=== PATIENT | female | born 1995 | race Caucasian/White ===

== ENCOUNTER 2019-11-26 15:42 | Emergency (ER) | payer SELFPAY ==
[2019-11-26 15:44] VITALS: BP 131/71; PULSE 98; RESP 18; TEMP 37.2; O2SAT 100; BMI 21.5
--- NOTE | 2019-11-26 15:57 | W.ED.PREGNAN ---
HPI - General: Chief complaint: OB/Uterine Contractions Stated complaint: possible Time Seen by Provider: 11/26/19 15:48 History of Present Illness: HPI Narrative: Patient states she is 8 days late on her period. Had some cramping today and some bloody discharge is kind of dark. Says she is done 3 test over the last 8 days and are positive in the morning but negative and evening. Denies any fever chills pain with intercourse burning with urination or other related problems MD Complaint: vaginal bleeding Onset (ago): hour(s) Pain Consistency: colicky Location: pelvis Severity: mild Quality: Cramping Vaginal discharge: none Vaginal bleeding: light Hx Last Menstrual Period: Last month Patient : No (Unsure) Associated symptoms: Reports no associated symptoms; Deny abdominal pain, headache(s), nausea or vomiting Review of Systems Const: Denies: fever(s), chills or body aches Eyes: Denies: change in vision or blurry vision ENMT: Denies: throat pain or nasal congestion Card: Denies: chest pain or dyspnea on exertion Resp: Denies: dyspnea, productive cough or non-productive cough GI: Denies: abdominal pain, nausea or vomiting : Reports: other (Vaginal bleed and cramping) Musc: Denies: extremity pain Skin/Breast: Denies: rash Neuro: Denies: headache(s) Psych: Denies: anxiety or depression Colby/Lymph: Denies: easy bruising PFSH ED PFSH: Social History Smoking and tobacco status: current every day smoker Physical Exam Const: COMMON NORMALS: no acute distress, average body habitus and patient oriented x3 HENMT: COMMON NORMALS: normocephalic HEAD & SCALP: normal to inspection and normocephalic FACE & SINUS: normal facial exam Eye: COMMON NORMALS: conjunctivae normal GENERAL EYE: appearance normal, both eyes and all related structures CONJUNCTIVA: Yes conjunctivae normal Neck/C-Spine: COMMON NORMALS: no JVD Chest: COMMONS NORMALS: normal inspection of the chest Resp: COMMON NORMALS: normal respiratory effort and clear to auscultation bilaterally AUSCULTATION: clear to auscultation bilaterally Cardio: COMMON NORMALS: no JVD, regular rate and regular rhythm RATE: regular rate RHYTHM: regular rhythm GI: COMMON NORMALS: Normal to inspection, nondistended, normoactive bowel sounds present Extremity: COMMON NORMALS: normal to inspection and full ROM Neuro: COMMON NORMALS: patient oriented x3 Course Vital Signs: Vital signs: Vital Signs Temperature 99.0 F 11/26/19 15:44 Pulse Rate 98 11/26/19 15:44 Respiratory Rate 18 11/26/19 15:44 Blood Pressure 131/71 11/26/19 15:44 Pulse Oximetry 100 11/26/19 15:44 Coding Level of Care Code ED Compliance Review Officer for Pippa Cortés
[2019-11-26 16:15] LABS: Basophils # 0.1 10^3/uL (0.0-0.1); Basophils % 0.8 %; Eosinophils # 0.2 10^3/uL (0.0-0.8); Eosinophils % 2.4 %; Hematocrit 41.2 % (37.0-47.0); Hemoglobin 13.3 g/dL (11.5-15.3); Lymphocytes # 2.2 10^3/uL (0.8-4.8); Lymphocytes % 29.7 %; Mean Corpuscular HGB Conc 32.3 g/dL (30.0-36.0); Mean Corpuscular Hemoglobin 29.8 pg (28.0-34.0); Mean Corpuscular Volume 92.4 fL (81-99); Mean Platelet Volume 10.6 fL (7.4-10.4); Monocytes # 0.5 10^3/uL (0.2-0.9); Monocytes % 7.3 %; Neutrophils # 4.4 10^3/uL (1.8-7.7); Neutrophils % 59.5 %; Nucleated Red Blood Cells % 0 %; Platelet Count 245 10^3/cmm (130-400); Red Blood Count 4.46 10^6/uL (4.1-5.3); Red Cell Distribution Width 12.4 % (12.1-15.1); White Blood Count 7.4 10^3/uL (4.0-10.0)
[2019-11-26 16:15] LABS: Add Urine Microscopic? NO
[2019-11-26 16:35] LABS: Bilirubin Urine Neg (NEGATIVE); Blood Urine Neg (Negative); Glucose Urine UA Norm (Normal); Ketones Urine Negative (Negative); Leukocyte Esterase Urine Negative (Negative); Nitrate Urine Negative (Negative); Protein Urine Neg (Negative); Specific Gravity, Urine 1.005 (1.005-1.030); Urine Appearance Clear (CLEAR); Urine Color Straw (Yellow); Urobilinogen Urine Norm (Negative); pH Urine 7 (5-7)
[2019-11-26 16:47] VITALS: BP 112/71; PULSE 68; RESP 17; O2SAT 98
== END 2019-11-26 16:49 | disposition home or self-care (01) ==
PROVIDERS: Emergency Provider Nurse Practitioner Family; PCP Nurse Practitioner
DX: R10.9 Unspecified abdominal pain (principal); N93.9 Abnormal uterine and vaginal bleeding, unspecified; F17.210 Nicotine dependence, cigarettes, uncomplicated
CPT/HCPCS: 12345; 36415; 81003; 84702; 85025; 86900; 99282

== ENCOUNTER → 2020-11-19 15:39 | Outpatient (BNVA) | payer SELFPAY | PROVIDERS: PCP Nurse Practitioner; Visit Provider Nurse Practitioner Family | DX: Z30.09 Encounter for other general counseling and advice on contraception (principal); F17.200 Nicotine dependence, unspecified, uncomplicated; Z78.9 Other specified health status | CPT/HCPCS: 81025 ==

== ENCOUNTER → 2021-01-24 11:00 | Outpatient (BNVA) | payer OTHER, SELFPAY | PROVIDERS: PCP Nurse Practitioner; Visit Provider Nurse Practitioner Family | DX: Z20.822 Contact with and (suspected) exposure to COVID-19 (principal) | CPT/HCPCS: 87635 ==

== ENCOUNTER 2021-01-27 11:37 | Emergency (ER) | payer MEDICAID, SELFPAY ==
[2021-01-27 11:38] VITALS: BP 105/65; PULSE 91; RESP 16; TEMP 36.4; O2SAT 98
[2021-01-27 11:49] VITALS: O2SAT 98
--- NOTE | 2021-01-27 11:57 | ED_ITS ---
HPI - General Adult General: Chief complaint: COVID symptoms Stated complaint: COVID, DIFF BREATHING Time Seen by Provider: 01/27/21 11:39 History of Present Illness: HPI narrative: CC: Shortness of breath, chest pain fever and generalized weakness HPI: This is a [25] yo patient w/ no significant PMH presenting to the ED with malaise, generalized weakness, cough sputum production, and L sided chest pain after she was diagnosed with covid on 01/23/2021. Since onset of symptoms, has had some shortness of breath and decreased PO intake. NO recent travel. Patient went see her PCP on 01/24 and was diagnosed positive on COVID PCR. Denies N/V, diaphoresis, GI or other complaints. Denies any pleuritic chest pain, recent surgery/immobilization/travel, or hematemesis or hx of VTE in the past. Onset: 4 days ago Duration: ongoing for the last 4 days Location: home Severity: moderate Review of Systems Narrative: Constitutional: +subjective fever, +generalized weakness HEENT: No vision changes CV: +chest pain, no palpitations PULM: +cough, +dyspnea. GI: No abdominal pain, no N/V/D. : No dysuria MSKEL: No muscle pain SKIN: No new rashes, no lesions. NEURO: No headache, no focal weakness. HEME: No visible bruises PSYCH: Normal mood PFSH ED PFSH: Family History Denies family history of Diabetes Bleeding disorder Family history of premature coronary artery disease Cancer Social History Smoking and tobacco status: current every day smoker cigarettes Packs smoked per day: 0.5 Years cigarettes smoked: 5 Second hand smoke exposure: No Alcohol intake: never Caregiver/support person: Yes Lives independently: Yes Marital status: Single service: No Current occupational status: employed Current occupation: [employer] History of recent travel: No Current gender identity: Female Physical Exam Narrative: EXAM NARRATIVE: Head: Atraumatic Eyes: PERRL, conjunctiva without injection ENT: Mucous membrane moist NECK: Supple without lymphadenopathy LUNGS: Lungs clear to ascutation CV: RRR ABDOMEN: Soft, nontender EXTREMITY: Normal ROM SKIN: No rash or erythema NEURO: Awake and alert. No focal motor deficits. PSYCH: Normal mood and affect. Course Vital Signs: Vital signs: Vital Signs Temperature 97.5 F L 01/27/21 11:38 Pulse Rate 75 01/27/21 14:11 Respiratory Rate 16 01/27/21 14:11 Blood Pressure 109/54 01/27/21 14:11 Pulse Oximetry 97 01/27/21 14:11 MDM - General Adult MDM Narrative: Medical decision making narrative: [25]yo patient presenting to the ED with shortness of breath, cough, chest pain and malaise after diagnosing with COVID. Workup today includes XR chest and EKG. Defer lab work at this time given that the patient is well appearing with stable vital signs and without recent hospitalization or care facility stay. Given History, Exam, and Workup presentation most consistent with pneumonia.Presentation not consistent with PE, COPD exacerbation, Pneumothorax, TB, Atypical ACS, Esophageal Rupture, Toxic Exposure, Foreign Body Airway Obstruction. Workup: CXR, EKG Intervention: Zofran, PO challenge EKG showing regular sinus rhythm at HT of [69]. Normal axis. No ST elevations/depressions to suggest coronary occlusion. Normal OH, QRS, QT intervals. [12:45] On reassessment Findings consistent suspected COVID symptoms. Afebrile currently. Patient continues to be in no respiratory distress with sats sats > 95% without requirements of oxygen in the emergency department. At this time jhon is not a candidate for BAM since patient does NOT meet any of the following criteria for EUA of MCA. I have discussed the workup today with patient who agrees to go home with serial observation. I have give patient strict return precautions for any worsening symptoms including worsening dyspnea, exertional dyspnea, cough, chest pain, dehydration, or any other concerns that patient may have. Disposition: Discharge. Patient is given strict follow up with PCP in 24-48 hrs for reassessment. Patient agrees with everything discussed today. Imaging Data^: Other Imaging: Radiologist's impression: [id number] [place], [place] [address]BBdf ReportSigned Patient: María Stanford #: [id number]: 1995Acct#:[id number]/Sex: 25 / FADM Date: 01/27/21Loc: ERRoom/Bed:Attending Dr: Ordering Provider/Ordering MD: Jam Larsen MD Date of Service: 01/27/21 Procedure(s): XR chest 1V portable [id number] Accession Number(s): [id number] Report Number: [id number] PROCEDURE INFORMATION: Exam: XR Chest Exam date and time: 01/27/2021 12:03 PM Age: 25 years old Clinical indication: Cough and shortness of breath; Patient HX: SOB, chest pressue, coughing x 2 weeks; Additional info: Rule out covid pna TECHNIQUE: Imaging protocol: XR of the chest. Views: 1 view. COMPARISON: CR Chest 1 [place] [id number] 10/23/2018 4:21 PM FINDINGS: Lungs: Unremarkable. No consolidation. Pleural spaces: Unremarkable. No pleural effusion. No pneumothorax. Heart/Mediastinum: Unremarkable. No cardiomegaly. Bones/joints: Unremarkable. XR/XR chest 1V portable [id number] IMPRESSION: No acute findings. Dictated By:Nga Marion By:Nga Marion Date/Time:01/27/21 1237DD/ 1235 Discharge Plan Discharge Patient Disposition: Home Clinical Impression: Cough, Chest pain, COVID-19 Condition: Stable Prescriptions: New Zofran 4 mg tablet 4 mg PO Q8H PRN (Reason: nausea and vomiting) 4 Days Qty: 12 RF: 0 No Action dexamethasone 6 mg tablet 6 mg PO DAILY Qty: 7 RF: 0 ondansetron HCl [Zofran] 4 mg tablet 4 mg PO Q6H PRN (Reason: nausea and vomiting) Qty: 20 RF: 0 albuterol sulfate [ProAir HFA] 90 mcg/actuation HFA aerosol inhaler 2 puff inhalation Q6H PRN (Reason: shortness of breath or wheezing) Qty: 8.5 RF: 0 Depo-Provera 150 mg/mL syringe See Rx Instructions .ROUTE .COMPLEX RF: 0 Discharge Orders: Discharge ED (Routine); Ordered 01/27/21 Ordered By: Jam Larsen Referrals: Janee Smith, PRODUCER ARBORIST MANAGER-C [Primary Care Provider] - Discharge Diet: Advance as tolerated Discharge Activity: Resume usual activity Patient Instructions: Severe Acute Respiratory Syndrome (SARS) (ED) Activity Restrictions/Additional Instructions: Follow-up with your primary care provider for evaluation of your symptoms. Come back to the emergency room if you have any worsening shortness of breath. Take your nausea medication as instructed if you have any symptoms. Coding Level of Care Code ED Vending Route Driver for Pippa Cortés
--- NOTE | 2021-01-27 12:03 | XRR_ITS ---
PROCEDURE INFORMATION: Exam: XR Chest Exam date and time: 01/27/2021 12:03 PM Age: 25 years old Clinical indication: Cough and shortness of breath; Patient HX: SOB, chest pressue, coughing x 2 weeks; Additional info: Rule out covid pna TECHNIQUE: Imaging protocol: XR of the chest. Views: 1 view. COMPARISON: CR Chest 1 [place] [id number] 10/23/2018 4:21 PM FINDINGS: Lungs: Unremarkable. No consolidation. Pleural spaces: Unremarkable. No pleural effusion. No pneumothorax. Heart/Mediastinum: Unremarkable. No cardiomegaly. Bones/joints: Unremarkable. XR/XR chest 1V portable [id number] IMPRESSION: No acute findings.
--- NOTE | 2021-01-27 12:03 | ECG_ITS ---
[facility] Test Date: 2021-01-27 Pat Name: María Stanford Department: Room: Gender: Female Supervisor Tunnel Heading: : 1995 Requested By: Jam Larsen Order Number: [id number] March MD: Lux Mcnamara M.D. Measurements Intervals [place] Rate: 69 P: 60 OR: 133 QRS: 84 QRSD: 93 T: 59 QT: 375 QTc: 404 Interpretive Statements SINUS RHYTHM POSSIBLE LEFT ATRIAL ENLARGEMENT [-0.1mV P-WAVE IN V1/V2] POSSIBLE RIGHT VENTRICULAR CONDUCTION DELAY [RSR (QR) IN V1/V2] MODERATE ST DEPRESSION [0.05+ mV ST DEPRESSION] Compared to ECG 04/19/2019 12:33:07 ST (T wave) deviation now present Sinus arrhythmia no longer present Electronically Signed On 01-27-2021 19:30:56 CDT by Lux Mcnamara M.D. [id number]
[2021-01-27] MEDS: ondansetron 4 MG Tablet PO (12:50)
[2021-01-27 14:11] VITALS: BP 109/54; PULSE 75; RESP 16; O2SAT 97
== END 2021-01-27 14:12 | disposition home or self-care (01) ==
PROVIDERS: Emergency Provider Emergency Medicine; PCP Nurse Practitioner
DX: U07.1 COVID-19 (principal); F17.210 Nicotine dependence, cigarettes, uncomplicated
CPT/HCPCS: 71045; 93005; 99283; Q0162

== ENCOUNTER → 2021-07-10 15:02 | Outpatient (BNVA) | payer MEDICAID, SELFPAY | PROVIDERS: PCP Nurse Practitioner; Visit Provider Nurse Practitioner Family | DX: N93.9 Abnormal uterine and vaginal bleeding, unspecified (principal) | CPT/HCPCS: 80053; 81025; 84702; 85025 ==

== ENCOUNTER 2021-08-26 09:52 | Emergency (ER) | payer MEDICAID, SELFPAY ==
[2021-08-26 10:48] VITALS: BP 115/69; PULSE 82; RESP 14; TEMP 36.7; O2SAT 100; BMI 21.9
--- NOTE | 2021-08-26 11:08 | ED_ITS ---
HPI - General Adult General: Chief complaint: General Medical Stated complaint: allergic rxn Time Seen by Provider: 08/26/21 10:05 History of Present Illness: Patient is a 26-year-old female comes to the ED with a rash. Patient says that 3 weeks ago was when the rash started. Patient had just her hair right before the rash started when she used a new hair dye. She then started developing a pruritic rash on her ears bilateral arms and legs. Left earlobe started getting more red swollen and tender. Within the last 24 hours patient's left ear will be started having some puslike drainage. Associated symptoms: Reports rash (Pruritic rash on ears, bilateral arms and legs.); Deny chest pain, dyspnea, headache(s), nausea, palpitations or vomiting Review of Systems Const: Denies: fever(s), chills or fatigue Eyes: Denies: change in vision or eye discomfort ENMT: Denies: throat pain, odynophagia, nasal discharge or nasal congestion Card: Denies: chest pain, palpitations, edema, swelling of feet/ankles, dyspnea on exertion or orthopnea Resp: Denies: dyspnea, productive cough or non-productive cough GI: Denies: abdominal pain, nausea, vomiting, diarrhea, constipation or hematochezia : Denies: flank pain, dysuria or hematuria Musc: Denies: neck pain, back pain or extremity swelling Skin/Breast: Reports: rash (Pruritic rash on ears, bilateral arms and legs.) and new lesions (Left earlobe-erythema, warmth tenderness and drainage) Neuro: Denies: headache(s), numbness in extremities or weakness in extremities PFSH ED PFSH: Family History Denies family history of Diabetes Bleeding disorder Family history of premature coronary artery disease Cancer Social History Smoking and tobacco status: former smoker (quit November,) Quit status (tobacco): has quit using tobacco Year quit tobacco: 2020 Former quit date comment: smoked 0.5 PPD x 5 yrs Second hand smoke exposure: No Alcohol intake: never Caregiver/support person: Yes Lives independently: Yes Household members: children Marital status: Single service: No Current occupational status: employed Current occupation: [employer] History of recent travel: No Current gender identity: Female Special mary needs: No Physical Exam Const: COMMON NORMALS: no acute distress, patient oriented x3 and alert GENERAL APPEARANCE: cooperative and comfortable HENMT: COMMON NORMALS: normocephalic HEAD & SCALP: normocephalic MOUTH: Normal oral and palatal mucosa present THROAT: posterior oropharynx normal and uvula midline Neck/C-Spine: COMMON NORMALS: supple GENERAL: Yes normal visual inspection Resp: COMMON NORMALS: normal respiratory effort, No retractions, No use of accessory muscles and clear to auscultation bilaterally AUSCULTATION: clear to auscultation bilaterally Cardio: COMMON NORMALS: regular rate, regular rhythm, S1 normal heart sound present, S2 normal heart sound present, No gallops present (Cardio), No clicks present (Cardio), No murmurs present (Cardio) and Peripheral pulses 2+ throughout RATE: regular rate RHYTHM: regular rhythm HEART SOUNDS: S1 normal heart sound present and S2 normal heart sound present PERIPHERAL PULSES: Peripheral pulses 2+ throughout GI: COMMON NORMALS: Normal to inspection, nondistended, normoactive bowel sounds present, Soft to palpation, non-tender and no masses PALPATION: Yes Soft to palpation : COMMON NORMALS: Yes no CVA tenderness BLADDER/KIDNEY EXAM: Yes no CVA tenderness Back/Pelvis: COMMON NORMALS: no CVA tenderness Extremity: NARRATIVE EXTREMITY EXAM: Pruritic hives-like rash from extremities GENERAL: Yes normal exam except as noted Neuro: COMMON NORMALS: patient oriented x3 and moves all extremities SENSORIUM/ORIENTATION: Yes alert Skin: NARRATIVE SKIN EXAM: Patient has pruritic hives-like rash on bilateral arms and legs. She also has a dry pruritic rash around her ears bilaterally. Left earlobe?erythema, warmth and tenderness noted. Some purulent drainage noted as well. Course Vital Signs: Vital signs: Vital Signs Temperature 98.0 F 08/26/21 10:48 Pulse Rate 82 08/26/21 10:48 Respiratory Rate 14 08/26/21 10:48 Blood Pressure 115/69 08/26/21 10:48 Pulse Oximetry 100 08/26/21 10:48 [facility] - General Adult Medical Decision Making Patient is a 26-year-old female that has a pruritic rash on neck, scalp and arms and legs bilaterally. Symptoms started after she dyed her hair with new products. Vitals are stable. Patient appears nontoxic in no acute distress. She does have hives-like rash on her upper and lower extremities bilaterally. She also has a dry pruritic rash around her ears and some developing cellulitis on the left earlobe with some puslike drainage. Patient was put on an antibiotic and a steroid to treat the allergic reaction and the cellulitis of the left earlobe. I also sent her with some steroid cream and mupirocin ointment as well. Follow-up with PCP in the next 7 to 10 days for reevaluation. Return ED precautions given. Patient understood and agreed with plan. Discharge Plan Discharge Patient Disposition: Home Clinical Impression: Allergic reaction, Cellulitis of left earlobe Condition: Stable Prescriptions: New mupirocin 2 % ointment 1 applic topical BID 7 Days Qty: 22 0RF prednisone 20 mg tablet 20 mg PO BID 5 Days Qty: 10 0RF triamcinolone acetonide 0.1 % cream 1 applic topical BID PRN (Reason: rash) Qty: 80 0RF clindamycin HCl 150 mg capsule 300 mg PO Q6H 7 Days Qty: 56 0RF Discharge Orders: Discharge ED (Routine); Ordered 08/26/21 Ordered By: Lucio Cerna Referrals: Sultana Arroyo FNP [Primary Care Provider] - Discharge Diet: Regular Discharge Activity: Resume usual activity Patient Instructions: Allergic Reaction, Cellulitis (ED) Activity Restrictions/Additional Instructions: Follow-up with medical provider as directed in the next 5-7 days for reevaluation. Take medications as prescribed. Mupirocin is the antibiotic ointment that I want you to apply on your left earlobe twice a day to help with infection. to the ER or your medical provider if condition worsens. Please read and understand discharge instructions. Thank you for choosing [facility] for your healthcare needs today. Please realize this is an emergency room and that we are providing you with a medical screening exam and this may not be complete and all inclusive of all the testing and or work up that you may need to determine your ailment or severity of your illness. It is very important that you follow up as instructed or that you return to the Emergency Department should you have concerns or if your condition changes or worsens in any way. Coding Level of Care Code ED Gravedigger for Pippa Cortés Exam Comprehensive
== END 2021-08-26 12:20 | disposition home or self-care (01) ==
PROVIDERS: Emergency Provider Physician Assistant; PCP Nurse Practitioner Family
DX: T78.40XA Allergy, unspecified, initial encounter (principal); H60.12 Cellulitis of left external ear
CPT/HCPCS: 96372; 99283; J2930

== ENCOUNTER 2022-10-23 13:30 | Emergency (ER) | payer MEDICAID, SELFPAY ==
[2022-10-23 13:44] VITALS: BP 100/63; PULSE 98; RESP 16; TEMP 36.6; O2SAT 97; BMI 21.0
[2022-10-23 14:40] LABS: Basophils # 0.1 10^3/uL (0.0-0.1); Basophils % 0.8 %; Eosinophils # 0.1 10^3/uL (0.0-0.8); Eosinophils % 1.4 %; Hematocrit 36.7 % (37.0-47.0); Hemoglobin 12.4 g/dL (11.5-15.3); Lymphocytes # 1.6 10^3/uL (0.8-4.8); Mean Corpuscular HGB Conc 33.8 g/dL (30.0-36.0); Mean Corpuscular Hemoglobin 30.3 pg (28.0-34.0); Mean Corpuscular Volume 89.7 fl (81-99); Mean Platelet Volume 10.2 fL (7.4-10.4); Monocytes # 0.5 10^3/uL (0.2-0.9); Monocytes % 6.5 %; Neutrophils # 4.83 10^3/uL (1.8-7.7); Neutrophils % 68.2 %; Nucleated Red Blood Cells % 0 %; Platelet Count 228 10^3/cmm (130-400); Red Blood Count 4.09 10^6/uL (4.1-5.3); Red Cell Distribution Width 12.6 % (12.1-15.1); White Blood Count 7.1 10^3/uL (4.0-10.0)
[2022-10-23 14:46] VITALS: BP 95/62; PULSE 86; RESP 16; TEMP 36.9; O2SAT 98
[2022-10-23 15:07] LABS: Alanine Aminotransferase 8 U/L (0-33); Albumin Level 4.1 g/dL (3.5-5.2); Alkaline Phosphatase 44 U/L (35-105); Anion Gap 15.3 (5-19); Aspartate Amino Transferase 10 U/L (0-32); Blood Urea Nitrogen 6 mg/dL (6-20); Calcium 8.5 mg/dL (8.5-10.5); Carbon Dioxide 22 mmol/L (22-29); Chloride 103 mmol/L (98-107); Globulin 2.3 g/dL (1.3-4.6); Glomerular Filtration Rate 192.9 mL/min (90-130); Glucose 76 mg/dL (65-115); Osmolality Calculated 280 mOsm/kg (285-295); Potassium 3.3 mmol/L (3.5-5.1); Sodium 137 mmol/L (136-145); Total Bilirubin 0.2 mg/dL (0.15-1.2); Total Protein 6.4 g/dL (6.6-8.7)
[2022-10-23 15:30] VITALS: BP 93/61; PULSE 83; RESP 15; TEMP 36.8; O2SAT 99
== END 2022-10-23 16:25 | disposition left against medical advice (07) ==
PROVIDERS: Physician Assistant; Emergency Provider Family Medicine; PCP Nurse Practitioner Family
DX: Z53.21 Procedure and treatment not carried out due to patient leaving prior to being seen by health care provider (principal)
CPT/HCPCS: 36415; 80053; 84702; 85025

== ENCOUNTER → 2023-02-22 09:43 | Day surgery (SDC) | payer MEDICAID, SELFPAY ==
[2023-02-22 10:11] VITALS: BP 120/59; PULSE 77; RESP 18; TEMP 36.4; O2SAT 100
[2023-02-22 11:02] VITALS: BP 120/59; PULSE 77; RESP 18; TEMP 36.4; O2SAT 100
== END ==
LOC: GILAB 09:45
PROVIDERS: PCP Nurse Practitioner Family; Visit Provider Family Medicine
DX: O26.899 Other specified pregnancy related conditions, unspecified trimester (principal); Z3A.00 Weeks of gestation of pregnancy not specified; Z67.91 Unspecified blood type, Rh negative
CPT/HCPCS: 36415; 86850; 86900; 90384; 96372

== ENCOUNTER 2023-04-21 15:37 | Outpatient (CLI) | payer MEDICAID, SELFPAY ==
[2023-04-21 15:40] VITALS: BMI 25.0
[2023-04-21 15:53] VITALS: BP 115/62; PULSE 98
[2023-04-21 16:08] VITALS: BP 110/57; PULSE 75
[2023-04-21 16:12] VITALS: RESP 16
[2023-04-21 16:22] LABS: Bilirubin Urine Neg (Negative); Blood Urine Neg (Negative); Glucose Urine UA Norm (Normal); Ketones Urine Negative (Negative); Leukocyte Esterase Urine Negative (Negative); Nitrate Urine Positive (Negative); Protein Urine Neg (Negative); Urine Appearance Clear (CLEAR); Urine Color Yellow (Yellow); Urobilinogen Urine Norm (Negative); pH Urine 7 (5-7)
[2023-04-21 16:23] VITALS: BP 109/63; PULSE 81
[2023-04-21 16:41] LABS: Add Urine Culture? No; Bacteria Urine TRACE /hpf; WBC Urine 0-4 /hpf (0-5)
== END 2023-04-21 16:40 | disposition home or self-care (01) ==
LOC: OPOB 15:41 → OBGYN 15:42
PROVIDERS: PCP Nurse Practitioner Family; Visit Provider Family Medicine
DX: O26.899 Other specified pregnancy related conditions, unspecified trimester (principal); Z3A.00 Weeks of gestation of pregnancy not specified; R10.2 Pelvic and perineal pain
CPT/HCPCS: 59025; 81001; 99211

== ENCOUNTER 2023-04-23 20:47 | Inpatient (IN) | payer MEDICAID, SELFPAY ==
[2023-04-23] VITALS (46 sets, daily range): BP systolic 66–125; BP diastolic 31–72; PULSE 62–116; RESP 17; TEMP 36; O2SAT 92–100; BMI 25.2
[2023-04-23] MEDS: lactated ringers 1,000 ML 999 ML IV ×4 (19:31→23:43)
[2023-04-23] MEDS: ampicillin 2,000 MG in sodium chloride 0.9% (plus) 50 ML 100 MG IV (21:29)
[2023-04-23 21:31] LABS: Basophils % 0.3 %; Eosinophils % 0.3 %; Hematocrit 35.3 % (36-47); Lymphocytes # 1.3 10^3/uL (0.8-4.8); Mean Corpuscular Hemoglobin 27.9 pg (27-33); Mean Corpuscular Volume 87.2 fl (85-98); Mean Platelet Volume 11.5 fL (7.4-10.4); Monocytes # 0.8 10^3/uL (0.2-0.9); Neutrophils # 9.38 10^3/uL (1.8-7.7); Neutrophils % 80.9 %; Nucleated Red Blood Cells % 0 %; Platelet Count 202 10^3/cmm (157-399); Red Blood Count 4.05 10^6/uL (3.85-5.65); Red Cell Distribution Width 12.5 % (12.1-15.1); White Blood Count 11.59 10^3/uL (3.29-11.43)
--- NOTE | 2023-04-23 22:00 | P.ANESASSM_ITS ---
Pre-Anesthetic Assessment Height/Weight: Height 1.63 m Weight 66.678 kg Temp Pulse Resp BP Pulse Ox O2 Del Method 96.8 F L 79 17 118/56 92 Room Air 04/23/23 21:01 04/23/23 22:16 04/23/23 17:58 04/23/23 22:15 04/23/23 22:16 04/23/23 17:58 Preop Diagnosis: IUP labor epidural Familial anesthetic complications: none Was Beta Lizette taken within 24 hours: N/A Was Clonidine taken within 24 hours: N/A Social No alcohol and No tobacco Exam alert and oriented x 3 Airway Submandibular: within normal limits Cervical ROM: within normal limits Mallampati: Class II Dentition: full History/ROS No significant complaints Anesthetic Plan ASA status: 2 Anesthesia: Anesthesia Evaluation and Regional (specify below) Medications/Allergies Home Medications Medication Instructions Recorded Confirmed Last Taken Type uaxumake-mya-Ga-FA 1 mg 1 tab PO DAILY 02/22/23 02/22/23 02/22/23 History tablet Allergies Allergy/AdvReac Type Severity Reaction Status Date / Time No Known Allergies Allergy Verified 04/23/23 18:13 Current Medications Generic Name Dose Route Start Last Admin Trade Name Freq PRN Reason Stop Dose Admin Lactated Ringer's 1,000 mls @ 999 mls/hr 04/23/23 20:47 04/23/23 21:15 Lactated Ringers IV 999 mls/hr .Q1H1M PRN Administration See label comments PFSH Anesthesia Surgical History No pertinent past surgical history Family History Denies family history of Diabetes Bleeding disorder Family history of premature coronary artery disease Cancer Social History (Updated 04/23/23 @ 22:11 by Lucio Bernardo MD) Smoking and tobacco/nicotine status: current every day tobacco/nicotine user e- cigarettes E-Cigarette Details: vaporizer device Second hand smoke exposure: No Alcohol intake: never Substance/Drug Use: never Caregiver/support person: Yes Lives independently: Yes Household members: children Marital status: Single service: No Current occupational status: employed Current occupation: [employer] Current gender identity: Female Special mary needs: No Female Reproductive History : 4 Data Anesthesia 04/23/23 19:24 Short CBC 04/23/23 Range/Units 19:24 WBC 11.59 H (3.29-11.43) 10^3/uL Hgb 11.30 (11.27-16.99) g/dL Hct 35.3 L (36-47) % MCV 87.2 (85-98) fl Plt Count 202 (157-399) 10^3/cmm Neut % (Auto) 80.9 % Neut # (Auto) 9.38 H (1.8-7.7) 10^3/uL Cardiac Studies: No Data to Display
--- NOTE | 2023-04-23 22:05 | P.HP_ITS ---
Providers/Chief Complaint Admitting Physician: Lucio Bernardo MD Primary Care Provider: [facility] Wilder Chief Complaint: pressure, contractions, back pain, discharge History of Present Illness María Stanford is a 27 year old @ 37.0 weeks gestation by stated EDC consistent with 21-week ultrasound. The patient's is complicated by vaping, diarrhea, Rh- status. The patient has been seen Dr. Gutierrez for obstetric care. I am covering for him while he is out of town. The patient presented to labor and delivery triage due to contractions that had started to increase around 3 PM on the afternoon of 04/23/2023. Apparently she had been having contractions for the last few days but they began to get stronger and closer together. She also has had diarrhea off and on for the last few weeks. She has not had any fevers or significant abdominal pain. She denies any blood in her stool. In triage the patient was initially 1 cm dilated. After 2 hours she changed to 2 cm dilation. She was duarte every 2 to 3 minutes. Because she was making change on her home, she was kept for spontaneous labor. The patient denies chest pains, cough, fever, nausea, vomiting, dysuria, leakage of fluid, vaginal bleeding other than bloody show. The patient is O- and states that she received her RhoGAM around 28 weeks. Medications/Allergies Home Medications Medication Instructions Recorded Confirmed Last Taken Type oerqwhcj-[id number] 1 mg 1 tab PO DAILY 02/22/23 02/22/23 02/22/23 History tablet Allergies Allergy/AdvReac Type Severity Reaction Status Date / Time No Known Allergies Allergy Verified 04/23/23 18:13 PFSH Acute PFSH: Surgical History No pertinent past surgical history Family History Denies family history of Diabetes Bleeding disorder Family history of premature coronary artery disease Cancer Social History (Updated 04/23/23 @ 22:11 by Lucio Bernardo MD) Smoking and tobacco/nicotine status: current every day tobacco/nicotine user e- cigarettes E-Cigarette Details: vaporizer device Second hand smoke exposure: No Alcohol intake: never Substance/Drug Use: never Caregiver/support person: Yes Lives independently: Yes Household members: children Marital status: Single service: No Current occupational status: employed Current occupation: [employer] Current gender identity: Female Special mary needs: No Female Reproductive History: : 4 Vitals/I&O/Wt Last Vital Signs Temp 96.8 F L 04/23/23 21:01 Pulse 72 04/23/23 21:52 Resp 17 04/23/23 17:58 BP 114/60 04/23/23 21:52 O2 Del Method Room Air 04/23/23 17:58 04/23/23 04/23/23 04/23/23 06:59 14:59 22:59 Intake Total 99.9 / 99.9 Balance 99.9 / 99.9 Weight last 48 hrs Weight 147 lb Physical Exam Narrative: General: Alert and oriented x3 Eyes: Pupils equal round and reactive to light and accommodation Mouth: Mucous membranes moist, pharynx non-erythematous Cardiac: Regular rate and rhythm without murmurs Lungs: Clear to auscultation bilaterally without wheezes, crackles or rhonchi Abdomen: Soft, non-tender, fundus consistent with gestational age Extremities: Trace edema in the bilateral lower extremities Data 04/23/23 19:24 A&P Assessment and plan (1) Supervision of normal intrauterine in multigravida: The patient has come in in active labor. She is duarte every 2 to 4 minutes. She has continued to make change so no further augmentation with Pitocin has been needed. Currently the head is vertex and ballotable. The patient has a history of the infant moving to the breech position right before delivery and delivery of breech. I have discussed this with the nurses and they will be watching for any signs of this. We would plan for a section if this happens again. The patient will receive a laboring epidural. The patient is GBS positive. We will start her on IV ampicillin for GBS prophylaxis. Currently heart tones are in the mid 130s with moderate variability good accelerations with a category 1 tracing. I discussed that the infant does have an increased risk for complications due to their gestational age, however that frequently infants born at 37 weeks also do well and that we will be able to tell once baby delivers. All questions were answered. Proceed with routine management otherwise. (2) Nicotine abuse: (3) Rh negative status during : (4) Diarrhea: The cause of this is not clear. It certainly could be due to a viral illness. Will watch for any signs of complications. Attestations Medical Necessity Statement*: The patient will be here for greater than 2 midnights due to routine intrapartum and management of labor and delivery. Coding Level of Care Code Acute Code for Chg Fwd Diagnoses Supervision of normal intrauterine in multigravida Z34.80 Nicotine abuse Z72.0 Rh negative status during O26.899; Z67.91 Diarrhea R19.7
[2023-04-23] MEDS: ROPivacaine syringe 100 MG/50 ML SYRINGE 10 MG EPIDURAL (22:17)
--- NOTE | 2023-04-23 22:20 | P.ANES_ITS ---
Anesthesia Procedures Procedure/Date: 04/23/23 Epidural: Time Out Performed: Yes Consents Signed: Procedure Consent Consent: from patient, risks and benefits reviewed and patient agrees to proceed Lumbar Level: L3-L4 Epidural position: sitting Epidural procedure: sterile prep of area, 1% lidocaine to numb the area, 18 g needle, negative for p aresthesia passed, test dose given, 1.5% xylocaine 1:200k epi, placed PCEA, no systemic response, sterile dressing applied, L.U.D. no apparent complications and 0.2% Ropiavacaine @ mls/hr (10) Additional Comments: YUNG at 3.5, taped at 12 at skin. NEgative blood/CSF upon apsiration.
[2023-04-23] MEDS: dextrose 5%-lactated ringers 1,000 ML 125 ML IV (22:39)
[2023-04-23 23:21] LABS: Glucose Urine UA Norm (Normal); Ketones Urine 2+ (Negative); Protein Urine Neg (Negative); Specific Gravity, Urine 1.005 (1.005-1.030); Urine Appearance Hazy (CLEAR); Urine Color Yellow (Yellow); pH Urine 7 (5-7)
[2023-04-23 23:22] LABS: Add Urine Culture? No; Bacteria Urine TRACE /hpf; Bilirubin Urine Neg (Negative); Blood Urine Neg (Negative); Leukocyte Esterase Urine Trace (Negative); Nitrate Urine Positive (Negative); RBC Urine 0-4 /hpf (0-2); Squamous Epithelial Cell Urine 0-4 /hpf (0-5); Urobilinogen Urine Neg (Negative); WBC Urine 0-4 /hpf (0-5)
--- NOTE | 2023-04-23 23:56 | PC.NURSE ---
Prenatals not available from clinic at this time. Patient able to access patient portal, but unable to find results of records.
[2023-04-24] VITALS (92 sets, daily range): BP systolic 89–115; BP diastolic 50–77; PULSE 61–106; RESP 14–17; TEMP 34.8–36.7; O2SAT 98–100; BMI 26.0
[2023-04-24] MEDS: ROPivacaine syringe 100 MG/50 ML SYRINGE 10 MG EPIDURAL ×3 (01:35→09:53)
[2023-04-24] MEDS: ampicillin 1,000 MG in sodium chloride 0.9% (plus) 50 ML 100 MG IV ×3 (01:40→09:14)
[2023-04-24] MEDS: dextrose 5%-lactated ringers 1,000 ML 125 ML IV (08:24)
[2023-04-24] MEDS: oxytocin 30 UNIT/500 ML BAG IV (09:13)
--- NOTE | 2023-04-24 11:22 | PM.MISC ---
Miscellaneous Note Purpose of Documentation: Epidural Bolus Patient c/o discomfort 03/09, bolused 100mcg fentanyl and 5mls of 2% lido through epidural.
--- NOTE | 2023-04-24 13:01 | PM.DELIVERY ---
Delivery Note: Date of delivery: April 24, 2023 Pre-delivery diagnoses: 1. Intrauterine at 37.1 weeks gestation 2. Rh- status 3. Diarrhea 4. Positive nitrates in urine 5. Vaping Post-delivery diagnoses: 1. Intrauterine status post spontaneous vaginal delivery at 37.1 weeks gestation 2. Rh- status 3. Diarrhea 4. Positive nitrates in urine 5. Vaping 6. Delivery of infant male weighing 6 pounds 9 ounces with Apgars of 4 and 8 Procedure: Spontaneous vaginal delivery Delivering Physician: Lucio Bernardo MD Pre-Delivery Course: María Stanford is a 27 year old G4 now P4 status post spontaneous vaginal delivery @ 37.1 weeks gestation by stated EDC consistent with 21-week ultrasound.? The patient's is complicated by vaping, diarrhea, Rh- status.? The patient has been seen Dr. Gutierrez for obstetric care.? I am covering for him while he is out of town. The patient presented to labor and delivery triage due to contractions that had started to increase around 3 PM on the afternoon of 04/23/2023.? Apparently she had been having contractions for the last few days but they began to get stronger and closer together.? She also had diarrhea off and on for the last few weeks.? She has not had any fevers or significant abdominal pain.? She denies any blood in her stool. In triage the patient was initially 1 cm dilated.? After 2 hours she changed to 2 cm dilation.? She was duarte every 2 to 3 minutes.? Because she was making change on her home, she was kept for spontaneous labor. The patient made slow change overnight but eventually made progress to 6 cm dilation by the morning of 04/24/2023. AROM was performed at 7:25 AM on 04/24/2023 to augment labor since she stalled out at 6 cm and clear fluid was noted. The patient then continued to make change but it was very slow in nature. For this reason IV Pitocin was added to augment labor. The patient was up to 3 units of Pitocin and then began to make change again. heart tones looked good throughout the labor process until the last few minutes when there was a deceleration right before delivery. The patient received a laboring epidural that initially helped well but then did not help as well towards the end of the delivery process. The patient began having more pain and was 9 and half centimeters. We tried test pushes and initially the cervix did not move out of the way, however with another trial in about 15 minutes the cervix was able to move out of the way and the patient was complete at 12:25 PM on 04/24/2023. Delivery: The patient began pushing with the test pushes at 12:20 PM on 04/24/2023. She pushed well and the delivered in the OA position at 12:36 PM on 04/24/2023. The infant's shoulders were horizontally located at the time of delivery and the right shoulder was rotated anteriorly and delivered initially with downward pressure followed by the left shoulder. The 's hands were by his chest at delivery time. The 's mouth and nose were bulb suctioned by myself. He took an initial breath directly after delivery but had poor respiratory effort. The was placed on the mother's chest where the nurses were waiting to care for him. The infant's cord was clamped by myself after approximately 45 seconds and cut by the 's grandmother. Cord blood was obtained. The cord was then drained of blood and traction was placed on the umbilical cord. The placenta delivered without complication at 12:40 PM on 04/24/2023. The placenta was noted to be intact with a central umbilical cord insertion site. The patient initially had moderate bleeding that declined with uterine massage. The cervix was inspected and no lacerations were noted. The vaginal wall was inspected and there was a small abrasion on the left lateral wall. No suturing was needed. Currently the mother is doing well. Currently the is needing extra support with CPAP. History History Past Pregnancies Del. Date GA/Weeks Outcome Route Wt Inf Gender Labor Lgth Comp. Anesthesia Location 04/24/23 37 live - full term Vaginal 6 lb 9 oz Male 22 hr [facility] A&P Assessment and plan (1) Spontaneous vaginal delivery: (2) Rh negative status during : (3) Diarrhea: Coding Level of Care Code Acute Code for Chg Fwd Diagnoses Spontaneous vaginal delivery O80 Rh negative status during O26.899; Z67.91 Diarrhea R19.7
[2023-04-24] MEDS: acetaminophen 325 mg Tablet 650 MG PO (13:50)
[2023-04-24] MEDS: ibuprofen 800 mg tablet PO ×2 (14:55→20:35)
[2023-04-24] MEDS: benzocaine-menthol 78 gm Canister 1 SPRAY TOPICAL (14:55)
[2023-04-24] MEDS: cefTRIAXone 1,000 MG in sodium chloride 0.9% (plus) 50 ML 100 MG IV (14:56)
--- NOTE | 2023-04-24 15:27 | ANE.PACU2 ---
Inpatient post-anesthesia follow up: Airway intact: Yes Vital signs: Temperature 97.2 F Pulse Rate 84 Respiratory Rate 16 Blood Pressure 112/69 Pulse Oximetry 100 Oxygen Delivery Me thod Room Air Oxygen Flow Rate Fraction of Inspir ed Oxygen Hydration adequate: Yes Nausea and vomiting: No Pain level: 2 Mental status: Baseline Additional Comments: Anes start 04.23.23 2200 Anes end 04.24.24 [id number]
[2023-04-24] MEDS: HYDROcodone-acetaminophen 5-325 mg Tablet PO (16:30)
[2023-04-24] MEDS: docusate sodium 100 mg Capsule PO (20:35)
[2023-04-25] MEDS: acetaminophen 325 mg Tablet 650 MG PO ×2 (00:44→08:06)
[2023-04-25 01:55] LABS: Hematocrit 28.5 % (36-47); Mean Corpuscular HGB Conc 31.9 g/dL (30-55); Mean Corpuscular Hemoglobin 27.9 pg (27-33); Mean Corpuscular Volume 87.4 fl (85-98); Mean Platelet Volume 11.2 fL (7.4-10.4); Platelet Count 186 10^3/cmm (157-399); Red Blood Count 3.26 10^6/uL (3.85-5.65); Red Cell Distribution Width 12.5 % (12.1-15.1); White Blood Count 11.09 10^3/uL (3.29-11.43)
[2023-04-25 04:17] VITALS: BP 103/71; PULSE 75; RESP 15; TEMP 36.4
[2023-04-25 04:23] LABS: Glucose Point of Care 69 mg/dL (70-110)
[2023-04-25 06:35] VITALS: BP 94/58; PULSE 76; RESP 16; TEMP 36.5
--- NOTE | 2023-04-25 07:51 | PM.PN ---
Subjective Subjective: The patient is doing well overall today. She is ambulating, voiding, passing gas and tolerating food by mouth. Her bleeding is decreasing well. Her pain is well-controlled. The patient has no concerns. She did take hydrocodone and did not feel well with it so would like to avoid it. She would like to have a tubal done, however would like to have Dr. Gutierrez do this instead of having it done here prior to discharge. Vitals/I&O/Wt Last Vital Signs Temp 97.7 F 04/25/23 06:35 Pulse 76 04/25/23 06:35 Resp 16 04/25/23 06:35 BP 94/58 04/25/23 06:35 Pulse Ox 99 04/24/23 15:44 O2 Del Method Room Air 04/24/23 15:44 04/24/23 04/25/23 04/25/23 22:59 06:59 14:59 Intake Total 1190.983 / 1605.000 Balance 1190.983 / 1305.000 Weight last 48 hrs Weight 147 lb Weight 147 lb Physical Exam Narrative: General: Alert and oriented x3 Cardiac: Regular rate and rhythm without murmurs Lungs: Clear to auscultation bilaterally without wheezes, crackles or rhonchi Abdomen: Soft, mild tenderness over uterus. The uterus is firm and 2 cm below the umbilicus. Extremities: Trace edema in the bilateral lower extremities Urinary Catheter Management: Mo: Cath Placed During This Visit: yes, but has since been removed by the nurse Reason for Continuing Indwelling Catheter: Decision to DC Catheter Urinary Catheter Date of Insertion: 04/23/23 Urinary Catheter Time of Insertion: 22:45 Date Urinary Catheter Removed: 04/24/23 Time Urinary Catheter Discontinued: 12:25 Data 04/25/23 01:38 A&P Assessment and plan (1) Spontaneous vaginal delivery: The patient is doing well overall at this time. We will continue with routine care. We will start iron today and have her take this as an outpatient due to hemoglobin decreasing down to 9. If the is discharged home today, we will consider discharge home for the mother as well. The patient will follow-up with Dr. Gutierrez at 6 weeks . She may consider an earlier appointment to get scheduled for a tubal ligation as well. The patient did have positive nitrates and a urine culture is pending. She was given Rocephin 1 g IV yesterday. We will watch for results and if positive go ahead and treat. She only had trace leukocyte esterase so this could have been a false positive as well. Attestations Medical Necessity Statement*: The patient will be here for greater than 2 midnights due to routine intrapartum and management of labor and delivery. Coding Level of Care Code Acute Code for Chg Fwd Diagnoses Spontaneous vaginal delivery O80
[2023-04-25] MEDS: ibuprofen 800 mg tablet PO (08:06)
[2023-04-25] MEDS: docusate sodium 100 mg Capsule PO (08:06)
[2023-04-25 08:11] VITALS: BP 106/71; PULSE 81; RESP 16; TEMP 36.6; TEMP 36.7; O2SAT 97
--- NOTE | 2023-04-25 13:55 | PM.DCS ---
Discharge Providers Date of Admission: 04/23/23 20:47 Date of Discharge: April 25, 2023 Attending Provider at Admission: Lucio Bernardo MD Attending Provider at Discharge: Lucio Bernardo MD Primary Care Provider: [facility] Wilder Diagnoses at Discharge Discharge Diagnosis (1) Spontaneous vaginal delivery: Status: Acute Other Information Additional DC diagnoses/information: 1.? Intrauterine status post spontaneous vaginal delivery at 37.1 weeks gestation 2.? Rh- status 3.? Diarrhea 4.? Positive nitrates in urine 5.? Vaping 6.? Delivery of infant male weighing 6 pounds 9 ounces with Apgars of 4 and 8 Reason for Visit Reason for Visit: pressure, contractions, back pain, discharge Brief History: María Stanford is a 27 year old G4 now P4 status post spontaneous vaginal delivery @ 37.1 weeks gestation by stated EDC consistent with 21-week ultrasound.? The patient's is complicated by vaping, diarrhea, Rh- status.? The patient has been seen by Dr. Gutierrez for obstetric care.? I am covering for him while he is out of town. The patient presented to labor and delivery triage due to contractions that had started to increase around 3 PM on the afternoon of 04/23/2023.? Apparently she had been having contractions for the last few days but they began to get stronger and closer together.? She also had diarrhea off and on for the last few weeks.? She has not had any fevers or significant abdominal pain.? She denies any blood in her stool. In triage the patient was initially 1 cm dilated.? After 2 hours she changed to 2 cm dilation.? She was duarte every 2 to 3 minutes.? Because she was making change on her home, she was kept for spontaneous labor. The patient made slow change overnight but eventually made progress to 6 cm dilation by the morning of 04/24/2023.? AROM was performed at 7:25 AM on 04/24/2023 to augment labor since she stalled out at 6 cm and clear fluid was noted.? The patient then continued to make change but it was very slow in nature.? For this reason IV Pitocin was added to augment labor.? The patient was up to 3 units of Pitocin and then began to make change again.? heart tones looked good throughout the labor process until the last few minutes when there was a deceleration right before delivery.? The patient received a laboring epidural that initially helped well but then did not help as well towards the end of the delivery process.? The patient began having more pain and was 9 and half centimeters.? We tried test pushes and initially the cervix did not move out of the way, however with another trial in about 15 minutes the cervix was able to move out of the way and the patient was complete at 12:25 PM on 04/24/2023. Hospital Course Hospital Course The patient began pushing with the test pushes at 12:20 PM on 04/24/2023.? She pushed well and the infant delivered in the OA position at 12:36 PM on 04/24/2023.? The 's shoulders were horizontally located at the time of delivery and the right shoulder was rotated anteriorly and delivered initially with downward pressure followed by the left shoulder.? The infant's hands were by his chest at delivery time.? The 's mouth and nose were bulb suctioned by myself.? He took an initial breath directly after delivery but had poor respiratory effort.? The infant was placed on the mother's chest where the nurses were waiting to care for him.? The 's cord was clamped by myself after approximately 45 seconds and cut by the infant's grandmother.? Cord blood was obtained.? The cord was then drained of blood and traction was placed on the umbilical cord.? The placenta delivered without complication at 12:40 PM on 04/24/2023.? The placenta was noted to be intact with a central umbilical cord insertion site.? The patient initially had moderate bleeding that declined with uterine massage.? The cervix was inspected and no lacerations were noted.? The vaginal wall was inspected and there was a small abrasion on the left lateral wall.? No suturing was needed.? The patient is doing well overall at discharge.? She is ambulating, voiding, passing gas and tolerating food by mouth.? Her bleeding is decreasing well.? Her pain is well-controlled.? The patient has no concerns.? She did take hydrocodone and did not feel well with it so would like to avoid it.? She would like to have a tubal done, however would like to have Dr. Gutierrez do this instead of having it done here prior to discharge. Routine discharge instructions were discussed and all questions were answered. The patient is in agreement with the current plan of care. Physical Exam Narrative: General: Alert and oriented x3 Cardiac: Regular rate and rhythm without murmurs Lungs: Clear to auscultation bilaterally without wheezes, crackles or rhonchi Abdomen: Soft, mild tenderness over uterus. The uterus is firm and 2 cm below the umbilicus. Extremities: Trace edema in the bilateral lower extremities Urinary Catheter Management: Mo: Cath Placed During This Visit: yes, but has since been removed by the nurse Reason for Continuing Indwelling Catheter: Decision to DC Catheter Urinary Catheter Date of Insertion: 04/23/23 Urinary Catheter Time of Insertion: 22:45 Date Urinary Catheter Removed: 04/24/23 Time Urinary Catheter Discontinued: 12:25 Discharge Data Studies Completed and Pending Pending at discharge Category Date Time Status Antibody Identification Routine Lab 04/23/23 19:24 Results Complete Crossmatch Routine Lab 04/23/23 19:24 Results Rho D Immune Globulin Routine Lab 04/23/23 19:24 Results Type and Screen Routine Lab 04/23/23 19:24 Results Urine Culture Routine Lab 04/25/23 07:54 Uncollected Laboratory Results WBC 11.09 10^3/uL (3.29-11.43) 04/25/23 01:38 RBC 3.26 10^6/uL (3.85-5.65) L 04/25/23 01:38 Hgb 9.10 g/dL (11.27-16.99) L 04/25/23 01:38 Hct 28.5 % (36-47) L 04/25/23 01:38 MCV 87.4 fl (85-98) 04/25/23 01:38 MCH 27.9 pg (27-33) 04/25/23 01:38 MCHC 31.9 g/dL (30-55) 04/25/23 01:38 RDW 12.5 % (12.1-15.1) 04/25/23 01:38 Plt Count 186 10^3/cmm (157-399) 04/25/23 01:38 MPV 11.2 fL (7.4-10.4) H 04/25/23 01:38 Neut % (Auto) 80.9 % 04/23/23 19:24 Lymph % (Auto) 11.0 % 04/23/23 19:24 [place] % (Auto) 7.0 % 04/23/23 19:24 Eos % (Auto) 0.3 % 04/23/23 19:24 Baso % (Auto) 0.3 % 04/23/23 19:24 Neut # (Auto) 9.38 10^3/uL (1.8-7.7) H 04/23/23 19:24 Lymph # (Auto) 1.3 10^3/uL (0.8-4.8) 04/23/23 19:24 [place] # (Auto) 0.8 10^3/uL (0.2-0.9) 04/23/23 19:24 Eos # (Auto) 0.0 10^3/uL (0.0-0.8) 04/23/23 19:24 Baso # (Auto) 0.0 10^3/uL (0.0-0.1) 04/23/23 19:24 Nucleated RBC % (auto) 0 % 04/23/23 19: Nucleated RBCs # 0.0 /100WBC 04/23/23 19:24 POC Glucose 69 mg/dL (70-110) L 04/25/23 03:49 Urine Color Yellow (Yellow) 04/23/23 22:51 Urine Appearance Hazy (CLEAR) A 04/23/23 22:51 Urine pH 7 (5-7) 04/23/23 22:51 Ur Specific [place] 1.005 (1.005-1.030) 04/23/23 22:51 Urine Protein Neg (Negative) 04/23/23 22:51 Urine Glucose (UA) Norm (Normal) 04/23/23 22:51 Urine Ketones 2+ (Negative) H 04/23/23 22:51 Urine Blood Neg (Negative) 04/23/23 22:51 Urine Nitrate Positive (Negative) H 04/23/23 22:51 Urine Bilirubin Neg (Negative) 04/23/23 22:51 Urine Urobilinogen Neg mg/dL (Negative) 04/23/23 22:51 Ur Leukocyte Esterase Trace (Negative) H 04/23/23 22:51 Urine RBC 0-4 /hpf (0-2) H 04/23/23 22:51 Urine WBC 0-4 /hpf (0-5) H 11/24/23 22:51 Ur Squamous Epith Cells 0-4 /hpf (0-5) H 04/23/23 22:51 Amorphous Sediment Not Reportable 04/23/23 22:51 Urine Bacteria Trace /hpf (NONE) 04/23/23 22:51 Blood Type O Negative 04/23/23 19:24 Rho(D) Type Negative 04/23/23 19:24 Antibody Screen Positive 04/23/23 19:24 Antibody Identification Anti-D 04/23/23 19:24 Screen Negative (Negative) 04/25/23 01:38 Vitals Last Vital Signs Temp 98.0 F 04/25/23 08:11 Pulse 81 04/25/23 08:11 Resp 16 04/25/23 08:11 BP 106/71 04/25/23 08:11 Pulse Ox 97 04/25/23 08:11 O2 Del Method Room Air 04/25/23 08:11 Discharge Plan Discharge Patient Disposition: Home Condition: Good Prescriptions: New ibuprofen 800 mg Tablet 800 mg PO TID Qty: 60 0RF ferrous sulfate 325 mg (65 mg iron) tablet 325 mg PO BID Qty: 30 0RF Continued 1 mg Tablet 1 tab PO DAILY Discharge Orders: Discharge Order (Routine); Ordered 04/25/23 Ordered By: Lucio Bernardo Referrals: Sumanth Gutierrez MD [Physician] - 6 Weeks Discharge Diet: Regular Discharge Activity: Increase activity as tolerated Patient Instructions: Opioid Safety Activity Restrictions/Additional Instructions: Please take your iron tablets twice a day for the next 2 weeks to help rebuild your blood count. Nothing per vagina for 6 weeks. I would recommend showers instead of baths for the first 6 weeks. Discharge Attestations Time Spent in Discharge Care*: greater than 30 min Quality Metrics Clinical Quality Measures [ No reported AMI, CVA or VTE this stay] Coding Level of Care Code Acute Code for Chg Fwd Diagnoses Spontaneous vaginal delivery O80
[2023-04-25 13:57] VITALS: BP 110/60; PULSE 81; RESP 16; TEMP 36.6; O2SAT 99
[2023-04-25 15:14] VITALS: BP 110/60; PULSE 80; RESP 15; TEMP 36.6; O2SAT 99
== END 2023-04-25 15:15 | disposition home or self-care (01) | DRG 807 ==
LOC: OPOB 20:47 → OBGYN 20:47
PROVIDERS: Admitting Provider Family Medicine; PCP Nurse Practitioner Family; Visit Provider Family Medicine
DX: O99.824 Streptococcus B carrier state complicating childbirth (principal); Z37.0 Single live birth; Z3A.37 37 weeks gestation of pregnancy; O99.334 Smoking (tobacco) complicating childbirth; F17.290 Nicotine dependence, other tobacco product, uncomplicated; O26.893 Other specified pregnancy related conditions, third trimester; Z67.41 Type O blood, Rh negative; O71.82 Other specified trauma to perineum and vulva; R82.79 Other abnormal findings on microbiological examination of urine; O99.892 Other specified diseases and conditions complicating childbirth
CPT/HCPCS: 36415; 36416; 51702; 59025; 59409; 80503; 81001; 82962; 85025; 85027; 85460; 86850; 86870; 86900; 90384; 96374; 99211; J0290; J0696; J2590; J2795; J3010; J7120; J7121

== ENCOUNTER → 2023-09-01 15:57 | Outpatient (BNVA) | payer MEDICAID, SELFPAY | PROVIDERS: PCP Nurse Practitioner Family; Visit Provider Nurse Practitioner Family | DX: R50.9 Fever, unspecified (principal) | CPT/HCPCS: 87400; 87426; 87880 ==

== ENCOUNTER 2024-02-05 04:24 | Emergency (ER) | payer SELFPAY ==
[2024-02-05 04:35] VITALS: BP 134/88; PULSE 83; RESP 20; TEMP 36.7; O2SAT 100; BMI 20.7
--- NOTE | 2024-02-05 04:53 | ED_ITS ---
Documented by User: Gabriel Hernandez DO 02/05/24 04:55 HPI - Female Genitourinary 2 General: Chief complaint: Vaginal Bleeding Stated complaint: 12 Wks Preg\Bleeding Time Seen by Provider: 02/05/24 04:29 History of Present Illness: Patient presents to the ER with complaints of vaginal bleeding. Patient approximately 12 weeks and noticed tonight when she went to use the bathroom that she was bleeding. She described it as quite a bit of blood. She said when she went to use the bathroom here in the ER there is a lot less there. Patient has had at least 1 miscarriage in the past but she also has had uneventful pregnancies. Patient does states she has some lower abdominal cramping. Related Data Home Medications Medication Instructions Recorded Confirmed acetaminophen 325 mg tablet 650 mg PO QID PRN 01/03/24 01/03/24 (Tylenol) vitalmin PO DAILY 01/03/24 Allergies Allergy/AdvReac Type Severity Reaction Status Date / Time No Known Allergies Allergy Verified 04/23/23 18:13 Review of Systems 2 General: Reports: 10 or more systems reviewed and unremarkable except in HPI and below PFSH ED 2 PFSH: Surgical History No pertinent past surgical history Family History Denies family history of Diabetes Bleeding disorder Family history of premature coronary artery disease Cancer Social History Smoking and tobacco/nicotine status: current every day tobacco/nicotine user e- cigarettes E-Cigarette Details: vaporizer device Second hand smoke exposure: No Alcohol intake: never Substance/Drug Use: never Caregiver/support person: Yes Lives independently: Yes Household members: children Marital status: Single service: No Current occupational status: employed Current occupation: [employer] Current gender identity: Female Special mary needs: No Physical Exam 2 Const: COMMON NORMALS: no acute distress, average body habitus, patient oriented x3, no limitations, healthy appearing, alert and well nourished HENMT: COMMON NORMALS: normocephalic, atraumatic, hearing grossly normal bilaterally, external ears normal, Normal external nose present and moist oral mucous membranes HEAD & SCALP: normocephalic and atraumatic NOSE: Normal external nose present EXTERNAL EAR: Yes external ears normal Neck/C-Spine: COMMON NORMALS: no JVD Chest: COMMONS NORMALS: normal inspection of the chest and normal palpation of entire chest wall Resp: COMMON NORMALS: normal respiratory effort, No retractions, No use of accessory muscles and clear to auscultation bilaterally AUSCULTATION: clear to auscultation bilaterally Cardio: COMMON NORMALS: no JVD, regular rate, regular rhythm, S1 normal heart sound present, S2 normal heart sound present, No gallops present (Cardio), No clicks present (Cardio), No murmurs present (Cardio) and No rub (Cardio) R ATE: regular rate RHYTHM: regular rhythm HEART SOUNDS: S1 normal heart sound present and S2 normal heart sound present GI: COMMON NORMALS: Normal to inspection, nondistended, normoactive bowel sounds present, Soft to palpation, No hepatosplenomegaly present and no masses; negative for non-tender (Palpate lower abdomen and suprapubic region) P ALPATION: Yes Soft to palpation and Yes No hepatosplenomegaly present Neuro: COMMON NORMALS: patient oriented x3 SENSORIUM/ORIENTATION: Yes alert Course 2 Vital Signs: Vital signs: Vital Signs Temperature 98.1 F 02/05/24 04:35 Pulse Rate 77 02/05/24 06:32 Respiratory Rate 16 02/05/24 06:32 Blood Pressure 118/61 02/05/24 06:32 Pulse Oximetry 100 02/05/24 06:32 MDM - Female Medical Records I reviewed the patient's medical records. Lab Data I reviewed the patient's lab results. 02/05/24 05:33 02/05/24 05:33 Laboratory Results WBC 8.21 10^3/uL (3.29-11.43) 02/05/24 05:33 RBC 4.06 10^6/uL (3.85-5.65) 02/05/24 05:33 Hgb 10.00 g/dL (11.27-16.99) L 02/05/24 05:33 Hct 31.9 % (36-47) L 02/05/24 05:33 MCV 78.6 fl (85-98) L 02/05/24 05:33 MCH 24.6 pg (27-33) L 02/05/24 05:33 MCHC 31.3 g/dL (30-55) 02/05/24 05:33 RDW 19.3 % (12.1-15.1) H 02/05/24 05:33 Plt Count 259 10^3/cmm (157-399) 02/05/24 05:33 MPV 10.1 fL (7.4-10.4) 02/05/24 05:33 Neut % (Auto) 74.4 % 02/05/24 05:33 Lymph % (Auto) 16.0 % 02/05/24 05:33 [place] % (Auto) 7.1 % 02/05/24 05:33 Eos % (Auto) 1.5 % 02/05/24 05:33 Baso % (Auto) 0.6 % 02/05/24 05:33 Neut # (Auto) 6.12 10^3/uL (1.8-7.7) 02/05/24 05:33 Lymph # (Auto) 1.3 10^3/uL (0.8-4.8) 02/05/24 05:33 [place] # (Auto) 0.6 10^3/uL (0.2-0.9) 02/05/24 05:33 Eos # (Auto) 0.1 10^3/uL (0.0-0.8) 02/05/24 05:33 Baso # (Auto) 0.1 10^3/uL (0.0-0.1) 02/05/24 05:33 Nucleated RBC % (auto) 0 % 02/05/24 05:33 Nucleated RBCs # 0.0 /100WBC 02/05/24 05:33 Sodium 136 mmol/L (136-145) 02/05/24 05:33 Potassium 3.4 mmol/L (3.5-5.1) L 02/05/24 05:33 Chloride 104 mmol/L (98-107) 02/05/24 05:33 Carbon Dioxide 18 mmol/L (22-29) L 02/05/24 05:33 Anion Gap 17.4 (5-19) 02/05/24 05:33 BUN 6 mg/dL (6-20) 02/05/24 05:33 Creatinine 0.4 mg/dL (0.5-0.9) L 02/05/24 05:33 GFR Calculation 191.5 mL/min (90-130) H 02/05/24 05:33 Glucose 85 mg/dL (65-115) 02/05/24 05:33 Calculated Osmolality 279 mOsm/kg (285-295) L 02/05/24 05:33 Calcium 8.1 mg/dL (8.5-10.5) L 02/05/24 05:33 Total Bilirubin 0.2 mg/dL (0.15-1.2) 02/05/24 05:33 AST 12 U/L (0-32) 02/05/24 05:33 ALT 9 U/L (0-33) 02/05/24 05:33 Alkaline Phosphatase 69 U/L (35-105) 02/05/24 05:33 Total Protein 6.8 g/dL (6.6-8.7) 02/05/24 05:33 Albumin 3.5 g/dL (3.5-5.2) 02/05/24 05:33 Globulin 3.3 g/dL (1.3-4.6) 02/05/24 05:33 Ser , Semi-Qnt 27400.00 mIU/mL 02/05/24 05:33 Urine Color Yellow (Yellow) 02/05/24 04:51 Urine Appearance Cloudy (CLEAR) A 02/05/24 04:51 Urine pH 5.5 (5-7) 02/05/24 04:51 Ur Specific [place] 1.023 (1.005-1.030) 02/05/24 04:51 Urine Protein Negative (Negative) 02/05/24 04:51 Urine Glucose (UA) Negative (Normal) 02/05/24 04:51 Urine Ketones Negative (Negative) 02/05/24 04:51 Urine Blood 2+ (Negative) A 02/05/24 04:51 Urine Nitrate Negative (Negative) 02/05/24 04:51 Urine Bilirubin Negative (Negative) 02/05/24 04:51 Urine Urobilinogen 1.0 mg/dL (Negative) 02/05/24 04:51 Ur Leukocyte Esterase Negative (Negative) 02/05/24 04:51 Urine RBC 0-2 /hpf (0-2) 02/05/24 04:51 Urine WBC 0-5 /hpf (0-5) 02/05/24 04:51 Ur Squamous Epith Cells 0-5 /hpf (0-5) 02/05/24 04:51 Amorphous Sediment Not Reportable 02/05/24 04:51 Urine Bacteria None seen /hpf (NONE) 02/05/24 04:51 Hyaline Casts 1.21 /lpf 02/05/24 04:51 Discharge Plan Discharge Patient Disposition: Home Clinical Impression: First trimester bleeding, Type O blood, Rh negative Condition: Stable Prescriptions: No Action vitalmin PO DAILY acetaminophen [Tylenol] 325 mg tablet 650 mg PO QID PRN Discharge Orders: Discharge ED (Routine); Ordered 02/05/24 Ordered By: Alton Gonsalez Referrals: Sultana Arroyo FNP [Primary Care Provider] - Discharge Diet: Usual diet Patient Instructions: Opioid Safety, Pain Management Activity Restrictions/Additional Instructions: Thank you for choosing [facility] for your healthcare needs today. It is very important that you follow up as instructed or that you return to the Emergency Department should you have concerns or if your condition changes or worsens in any way. Were seen today for complaints of vaginal bleeding. Ultrasound confirmed an intrauterine at 12 weeks with good motion and good heart tones. No signs of active bleeding on the ultrasound. You were given RhoGAM due to your O- blood type. Follow-up with your OB doctor within the next 1 to 2 weeks return if you have recurrence of vaginal bleeding. Avoid exertional activities. Coding Level of Care Code ED Area Loss Prevention Manager for Chg Fwd Documented by User: Alton Gonsalez DO 02/05/24 06:38 HPI - Female Genitourinary 2 General: Chief complaint: Vaginal Bleeding Stated complaint: 12 Wks Preg\Bleeding Time Seen by Provider: 02/05/24 04:29 Related Data Home Medications Medication Instructions Recorded Confirmed acetaminophen 325 mg tablet 650 mg PO QID PRN 01/03/24 01/03/24 (Tylenol) vitalmin PO DAILY 01/03/24 Allergies Allergy/AdvReac Type Severity Reaction Status Date / Time No Known Allergies Allergy Verified 04/23/23 18:13 PFSH ED 2 PFSH: Surgical History No pertinent past surgical history Family History Denies family history of Diabetes Bleeding disorder Family history of premature coronary artery disease Cancer Social History Smoking and tobacco/nicotine status: current every day tobacco/nicotine user e- cigarettes E-Cigarette Details: vaporizer device Second hand smoke exposure: No Alcohol intake: never Substance/Drug Use: never Caregiver/support person: Yes Lives independently: Yes Household members: children Marital status: Single service: No Current occupational status: employed Current occupation: [employer] Current gender identity: Female Special mary needs: No Course 2 Vital Signs: Vital signs: Vital Signs Temperature 98.1 F 02/05/24 04:35 Pulse Rate 77 02/05/24 06:32 Respiratory Rate 16 02/05/24 06:32 Blood Pressure 118/61 02/05/24 06:32 Pulse Oximetry 100 02/05/24 06:32 MDM - Female Medical Decision Making Assumed at change of shift from Dr. Hernandez to discuss case and reviewed his note. Patient woke up swelling went to urinate had some bleeding. This time she arrived. Evidently had stopped. She required care. CT is as expected her hemoglobin is 10 It is up from her previous hemoglobin however her previous one is nearly a-year-old. She is not having any further bleeding ultrasound confirmed intrauterine with heart tones and movement. She is Rh- she is given RhoGAM shot discharge home reviewed findings with her suspect she may have a little more bleeding even some passage of older blood. She should return if she has increased and bright red blood. Encouraged her to contact her OB physician early next week Lab Data 02/05/24 05:33 02/05/24 05:33 Laboratory Results WBC 8.21 10^3/uL (3.29-11.43) 02/05/24 05:33 RBC 4.06 10^6/uL (3.85-5.65) 02/05/24 05:33 Hgb 10.00 g/dL (11.27-16.99) L 02/05/24 05:33 Hct 31.9 % (36-47) L 02/05/24 05:33 MCV 78.6 fl (85-98) L 02/05/24 05:33 MCH 24.6 pg (27-33) L 02/05/24 05:33 MCHC 31.3 g/dL (30-55) 02/05/24 05:33 RDW 19.3 % (12.1-15.1) H 02/05/24 05:33 Plt Count 259 10^3/cmm (157-399) 02/05/24 05:33 MPV 10.1 fL (7.4-10.4) 02/05/24 05:33 Neut % (Auto) 74.4 % 02/05/24 05:33 Lymph % (Auto) 16.0 % 02/05/24 05:33 [place] % (Auto) 7.1 % 02/05/24 05:33 Eos % (Auto) 1.5 % 02/05/24 05:33 Baso % (Auto) 0.6 % 02/05/24 05:33 Neut # (Auto) 6.12 10^3/uL (1.8-7.7) 02/05/24 05:33 Lymph # (Auto) 1.3 10^3/uL (0.8-4.8) 02/05/24 05:33 [place] # (Auto) 0.6 10^3/uL (0.2-0.9) 02/05/24 05:33 Eos # (Auto) 0.1 10^3/uL (0.0-0.8) 02/05/24 05:33 Baso # (Auto) 0.1 10^3/uL (0.0-0.1) 02/05/24 05:33 Nucleated RBC % (auto) 0 % 02/05/24 05:33 Nucleated RBCs # 0.0 /100WBC 02/05/24 05:33 Sodium 136 mmol/L (136-145) 02/05/24 05:33 Potassium 3.4 mmol/L (3.5-5.1) L 02/05/24 05:33 Chloride 104 mmol/L (98-107) 02/05/24 05:33 Carbon Dioxide 18 mmol/L (22-29) L 02/05/24 05:33 Anion Gap 17.4 (5-19) 02/05/24 05:33 BUN 6 mg/dL (6-20) 02/05/24 05:33 Creatinine 0.4 mg/dL (0.5-0.9) L 02/05/24 05:33 GFR Calculation 191.5 mL/min (90-130) H 02/05/24 05:33 Glucose 85 mg/dL (65-115) 02/05/24 05:33 Calculated Osmolality 279 mOsm/kg (285-295) L 02/05/24 05:33 Calcium 8.1 mg/dL (8.5-10.5) L 02/05/24 05:33 Total Bilirubin 0.2 mg/dL (0.15-1.2) 02/05/24 05:33 AST 12 U/L (0-32) 02/05/24 05:33 ALT 9 U/L (0-33) 02/05/24 05:33 Alkaline Phosphatase 69 U/L (35-105) 02/05/24 05:33 Total Protein 6.8 g/dL (6.6-8.7) 02/05/24 05:33 Albumin 3.5 g/dL (3.5-5.2) 02/05/24 05:33 Globulin 3.3 g/dL (1.3-4.6) 02/05/24 05:33 Ser , Semi-Qnt 69252.00 mIU/mL 02/05/24 05:33 Urine Color Yellow (Yellow) 02/05/24 04:51 Urine Appearance Cloudy (CLEAR) A 02/05/24 04:51 Urine pH 5.5 (5-7) 02/05/24 04:51 Ur Specific [place] 1.023 (1.005-1.030) 02/05/24 04:51 Urine Protein Negative (Negative) 02/05/24 04:51 Urine Glucose (UA) Negative (Normal) 02/05/24 04:51 Urine Ketones Negative (Negative) 02/05/24 04:51 Urine Blood 2+ (Negative) A 02/05/24 04:51 Urine Nitrate Negative (Negative) 02/05/24 04:51 Urine Bilirubin Negative (Negative) 02/05/24 04:51 Urine Urobilinogen 1.0 mg/dL (Negative) 02/05/24 04:51 Ur Leukocyte Esterase Negative (Negative) 02/05/24 04:51 Urine RBC 0-2 /hpf (0-2) 02/05/24 04:51 Urine WBC 0-5 /hpf (0-5) 02/05/24 04:51 Ur Squamous Epith Cells 0-5 /hpf (0-5) 02/05/24 04:51 Amorphous Sediment Not Reportable 02/05/24 04:51 Urine Bacteria None seen /hpf (NONE) 02/05/24 04:51 Hyaline Casts 1.21 /lpf 02/05/24 04:51 All radiology interpretation(s) finalized by discharge Discharge Plan Discharge Patient Disposition: Home Clinical Impression: First trimester bleeding, Type O blood, Rh negative Condition: Stable Prescriptions: No Action vitalmin PO DAILY acetaminophen [Tylenol] 325 mg tablet 650 mg PO QID PRN Discharge Orders: Discharge ED (Routine); Ordered 02/05/24 Ordered By: Alton Gonsalez Referrals: Sultana Arroyo FNP [Primary Care Provider] - Discharge Diet: Usual diet Patient Instructions: Opioid Safety, Pain Management Activity Restrictions/Additional Instructions: Thank you for choosing [facility] for your healthcare needs today. It is very important that you follow up as instructed or that you return to the Emergency Department should you have concerns or if your condition changes or worsens in any way. Were seen today for complaints of vaginal bleeding. Ultrasound confirmed an intrauterine at 12 weeks with good motion and good heart tones. No signs of active bleeding on the ultrasound. You were given RhoGAM due to your O- blood type. Follow-up with your OB doctor within the next 1 to 2 weeks return if you have recurrence of vaginal bleeding. Avoid exertional activities. Coding Level of Care Code ED Area Loss Prevention Manager for Pippa Cortés
[2024-02-05 04:57] LABS: Charge for UA Resulting for Rev
[2024-02-05 04:59] LABS: Bilirubin Urine Negative (Negative); Blood Urine 2+ (Negative); Glucose Urine UA Negative (Normal); Ketones Urine Negative (Negative); Leukocyte Esterase Urine Negative (Negative); Nitrate Urine Negative (Negative); Protein Urine Negative (Negative); Specific Gravity, Urine 1.023 (1.005-1.030); Urine Appearance Cloudy (CLEAR); Urine Color Yellow (Yellow); pH Urine 5.5 (5-7)
[2024-02-05 05:04] LABS: Bacteria Urine None Seen /hpf; Hyaline Casts Urine 1.21 /lpf; RBC Urine 0-2 /hpf (0-2); Squamous Epithelial Cell Urine 0-5 /hpf (0-5); WBC Urine 0-5 /hpf (0-5)
--- NOTE | 2024-02-05 05:21 | USR_ITS ---
PROCEDURE INFORMATION: Exam: US , Limited Exam date and time: 02/05/2024 6:14 AM Age: 28 years old Clinical indication: Lmp or gestational age (in weeks): 12 w 2d per ultrasound; Antepartum complications; Bleeding; ; Additional info: 12 weeks gestation, vaginal bleeding LABS AND CLINICAL REPORTS: Gestational age (Established): 11 w 6 d Estimated due date (Established): 08/20/2024 TECHNIQUE: Imaging protocol: Real-time ultrasound of the maternal uterus with image documentation. Exam focused on the clinical indication. COMPARISON: [place] [id number] 04/08/2023 11:21 AM FINDINGS: Gestation: Single live intrauterine gestation. heart rate: 157 bpm. Placenta: No subchorionic bleed identified. Pericardial BIOMETRY: Gestational age (AUA): 12 weeks 2 days Estimated due date (AUA): 08/17/2024 [place] rump length (CRL): 5.69 cm MATERNAL: Cervix: Cervical length measures 4.8 cm. US/US OB limited [id number] IMPRESSION: Single live intrauterine gestation with estimated age of 12 weeks 2 days.
[2024-02-05 05:40] LABS: Basophils # 0.1 10^3/uL (0.0-0.1); Basophils % 0.6 %; Eosinophils # 0.1 10^3/uL (0.0-0.8); Eosinophils % 1.5 %; Hematocrit 31.9 % (36-47); Lymphocytes # 1.3 10^3/uL (0.8-4.8); Mean Corpuscular HGB Conc 31.3 g/dL (30-55); Mean Corpuscular Hemoglobin 24.6 pg (27-33); Mean Corpuscular Volume 78.6 fl (85-98); Mean Platelet Volume 10.1 fL (7.4-10.4); Monocytes # 0.6 10^3/uL (0.2-0.9); Monocytes % 7.1 %; Neutrophils # 6.12 10^3/uL (1.8-7.7); Neutrophils % 74.4 %; Nucleated Red Blood Cells % 0 %; Platelet Count 259 10^3/cmm (157-399); Red Blood Count 4.06 10^6/uL (3.85-5.65); Red Cell Distribution Width 19.3 % (12.1-15.1); White Blood Count 8.21 10^3/uL (3.29-11.43)
[2024-02-05] MEDS: rho(d) immune globulin 1,500 unit Syringe 1500 UNIT IM (06:12)
[2024-02-05 06:13] LABS: Alanine Aminotransferase 9 U/L (0-33); Albumin Level 3.5 g/dL (3.5-5.2); Alkaline Phosphatase 69 U/L (35-105); Anion Gap 17.4 (5-19); Aspartate Amino Transferase 12 U/L (0-32); Blood Urea Nitrogen 6 mg/dL (6-20); Calcium 8.1 mg/dL (8.5-10.5); Carbon Dioxide 18 mmol/L (22-29); Chloride 104 mmol/L (98-107); Creatinine Clr Calc Pharmacy 175.6514; Globulin 3.3 g/dL (1.3-4.6); Glomerular Filtration Rate 191.5 mL/min (90-130); Glucose 85 mg/dL (65-115); Osmolality Calculated 279 mOsm/kg (285-295); Potassium 3.4 mmol/L (3.5-5.1); Sodium 136 mmol/L (136-145); Total Bilirubin 0.2 mg/dL (0.15-1.2); Total Protein 6.8 g/dL (6.6-8.7)
[2024-02-05 06:24] VITALS: BP 112/54; PULSE 78; RESP 16; O2SAT 100
[2024-02-05 06:32] VITALS: BP 118/61; PULSE 77; RESP 16; O2SAT 100
== END 2024-02-05 06:34 | disposition home or self-care (01) ==
PROVIDERS: Emergency Provider Emergency Medicine; PCP Nurse Practitioner Family
DX: O20.9 Hemorrhage in early pregnancy, unspecified (principal); O26.891 Other specified pregnancy related conditions, first trimester; Z67.41 Type O blood, Rh negative; O99.331 Smoking (tobacco) complicating pregnancy, first trimester; F17.290 Nicotine dependence, other tobacco product, uncomplicated; Z3A.12 12 weeks gestation of pregnancy
CPT/HCPCS: 76815; 80053; 81003; 81015; 84702; 85025; 96372; 99284; J2790

== ENCOUNTER 2024-05-13 20:54 | Outpatient (CLI) | payer MEDICAID, SELFPAY ==
[2024-05-13 20:56] VITALS: BMI 24.3
[2024-05-13 21:07] VITALS: BP 118/63; PULSE 100
[2024-05-13 21:25] VITALS: BP 117/58; PULSE 86
[2024-05-13 21:36] VITALS: BP 117/58; PULSE 86; RESP 16
== END 2024-05-13 21:37 | disposition home or self-care (01) ==
LOC: OPOB 20:55 → OBGYN 20:55
PROVIDERS: PCP Nurse Practitioner Family; Visit Provider Family Medicine
DX: O46.90 Antepartum hemorrhage, unspecified, unspecified trimester (principal); Z3A.00 Weeks of gestation of pregnancy not specified
CPT/HCPCS: 99211

== ENCOUNTER 2024-05-30 08:25 | Oncology outpatient (recurring) (ONCR) | payer MEDICAID, SELFPAY ==
[2024-05-30 08:38] VITALS: BP 118/77; PULSE 87; RESP 15; TEMP 36.5; O2SAT 99
[2024-05-30] MEDS: rho(d) immune globulin 1,500 unit Syringe 1500 UNIT IM (09:13)
[2024-05-30 09:16] VITALS: BP 123/71; PULSE 108; RESP 16; TEMP 36.8; O2SAT 99
--- NOTE | 2024-05-30 09:17 | PC.NURSE ---
RH status verified with Kate Majano RN as well as patient before giving ordered RhoGam injection. Pt states she has had the RhoGam injection previously and tolerated well.
== END 2024-05-30 23:59 | disposition home or self-care (01) ==
LOC: ONCMED 08:26
PROVIDERS: PCP Nurse Practitioner Family; Visit Provider Family Medicine
DX: Z79.899 Other long term (current) drug therapy (principal); Z67.40 Type O blood, Rh positive
CPT/HCPCS: 96372; J2790

== ENCOUNTER 2024-07-27 12:10 | Outpatient (CLI) | payer MEDICAID, SELFPAY ==
[2024-07-27 12:15] VITALS: BMI 25.6
[2024-07-27 12:22] VITALS: BP 113/60; PULSE 115
[2024-07-27 12:30] VITALS: RESP 16; TEMP 35.8
[2024-07-27 12:37] VITALS: BP 105/56; PULSE 109
[2024-07-27 12:53] VITALS: BP 101/52; PULSE 94
[2024-07-27 13:07] VITALS: BP 109/58; PULSE 97
[2024-07-27 13:25] VITALS: BP 109/58; PULSE 97; RESP 16; TEMP 35.8; O2SAT 97
== END 2024-07-27 13:25 | disposition home or self-care (01) ==
LOC: OPOB 12:13 → OBGYN 12:13
PROVIDERS: PCP Nurse Practitioner Family; Visit Provider Family Medicine
DX: O26.899 Other specified pregnancy related conditions, unspecified trimester (principal); Z3A.00 Weeks of gestation of pregnancy not specified; R10.9 Unspecified abdominal pain
CPT/HCPCS: 59025; 99211

== ENCOUNTER 2024-07-31 04:17 | Inpatient (IN) | payer MEDICAID, SELFPAY ==
[2024-07-30] VITALS (23 sets, daily range): BP systolic 96–116; BP diastolic 57–70; PULSE 82–123; O2SAT 98–100; BMI 23.1
[2024-07-30 22:41] LABS: Basophils # 0.1 10^3/uL (0.0-0.1); Basophils % 0.6 %; Eosinophils # 0.1 10^3/uL (0.0-0.8); Eosinophils % 0.9 %; Lymphocytes # 2.1 10^3/uL (0.8-4.8); Lymphocytes % 19.7 %; Mean Corpuscular HGB Conc 29.2 g/dL (30-55); Mean Corpuscular Hemoglobin 20.4 pg (27-33); Mean Platelet Volume 10.9 fL (7.4-10.4); Monocytes # 0.8 10^3/uL (0.2-0.9); Monocytes % 7.4 %; Neutrophils # 7.67 10^3/uL (1.8-7.7); Neutrophils % 70.5 %; Nucleated Red Blood Cells % 0.2 %; Platelet Count 268 10^3/cmm (157-399); Red Blood Count 3.57 10^6/uL (3.85-5.65); Red Cell Distribution Width 17.1 % (12.1-15.1); White Blood Count 10.87 10^3/uL (3.29-11.43)
[2024-07-30] MEDS: ampicillin 2,000 MG in sodium chloride 0.9% (plus) 50 ML 100 MG IV (23:00)
[2024-07-30] MEDS: dextrose 5%-lactated ringers 1,000 ML 125 ML IV (23:50)
[2024-07-31] VITALS (63 sets, daily range): BP systolic 98–135; BP diastolic 52–77; PULSE 64–131; RESP 15–18; TEMP 36–37.1; O2SAT 97–100
[2024-07-31] MEDS: fentaNYL 50 mcg/mL INJ 2mL IVP ×4 (00:10→08:05)
[2024-07-31] MEDS: ampicillin 1,000 MG in sodium chloride 0.9% (plus) 50 ML 100 MG IV ×2 (02:24→06:28)
[2024-07-31] MEDS: oxytocin 30 UNIT/500 ML BAG IV (04:45)
--- NOTE | 2024-07-31 04:50 | PM.OPHPUD ---
Labor & Delivery H&P Update Date of Procedure: July 31, 2024 Date H&P Performed: 07/28/24 Changes to previous documentation: Patient is having consistent contractions and making cervical change Admission Diagnosis: 29-year-old 6 para 3-1-1-4 at 37 weeks estimated gestational age presenting in active labor Planned procedure: Vaginal delivery Other information: The patient presented to the hospital after having consistent contractions happening less than every 5 minutes over period of hours. Her membranes were intact. There were no other concerns or problems. The patient is limited blood type is O-. Her antibody screen was positive at less than a one-to-one ratio. Her GBS status is positive. She is rubella immune. The remainder of her infectious disease profile is within normal limits. Related Problem List Diagnoses (1) 37 weeks gestation of : A&P Assessment and plan (1) 37 weeks gestation of : I anticipate routine labor and delivery Status: Acute PDMP PDMP Reviewed: Not Reviewed
[2024-07-31] MEDS: dextrose 5%-lactated ringers 1,000 ML 125 ML IV (08:06)
[2024-07-31 08:58] LABS: Basophils # 0.1 10^3/uL (0.0-0.1); Basophils % 0.7 %; Eosinophils % 0.4 %; Hematocrit 23.8 % (36-47); Lymphocytes # 1.5 10^3/uL (0.8-4.8); Lymphocytes % 15.2 %; Mean Corpuscular HGB Conc 29.4 g/dL (30-55); Mean Corpuscular Hemoglobin 20.5 pg (27-33); Mean Corpuscular Volume 69.8 fl (85-98); Mean Platelet Volume 10.9 fL (7.4-10.4); Monocytes # 0.6 10^3/uL (0.2-0.9); Monocytes % 6.2 %; Neutrophils # 7.68 10^3/uL (1.8-7.7); Neutrophils % 76.8 %; Nucleated Red Blood Cells % 0.2 %; Platelet Count 221 10^3/cmm (157-399); Red Blood Count 3.41 10^6/uL (3.85-5.65); Red Cell Distribution Width 17.1 % (12.1-15.1)
--- NOTE | 2024-07-31 08:58 | PC.NURSE ---
[id number] Castro to discuss the possibility of pt getting an epidural. Labs and VS discussed. Received orders to run another CBC.
[2024-07-31] MEDS: sodium chloride 0.9% 1,000 ML 999 ML IV (09:30)
--- NOTE | 2024-07-31 10:54 | PM.DELIVERY ---
Delivery Note: Date of delivery: July 31, 2024 Pre-delivery diagnoses: 29-year-old female with 37 weeks estimated gestational age presenting in active labor Post-delivery diagnoses: Status post spontaneous vaginal delivery Procedure: Spontaneous vaginal delivery Delivering Physician: Sumanth Gutierrez Estimated blood loss (mL): 25 Pre-Delivery Course: The patient presented to the hospital in active labor. An amniotomy was performed. She was given fentanyl for pain control. She progressed to complete without difficulty. She was on group B strep protocol due to baby's GBS status being unknown. Delivery: DELIVERY: The patient progressed to complete without difficulty. She delivered a male with a weight of 7 pounds 1 ounce with Apgars of 8, 9. The baby was delivered from the WILLIAM position and placed on the mother's abdomen. The cord was then clamped and cut. There was a nuchal cord x 1 that the baby was delivered through. There was terminal meconium. The placenta and 3 vessel cord were delivered intact shortly thereafter. The perineum and vaginal vault were carefully examined. No significant lacerations were noted. Both the mother and the baby were in stable condition. Post-Delivery Status: Good History History Past Pregnancies Del. Date GA/Weeks Outcome Route Wt Inf Gender Labor Lgth Comp. Anesthesia Location 04/24/23 37 live - full term Vaginal 6 lb 9 oz Male 22 hr [facility], operated by [facility] A&P Assessment and plan (1) Spontaneous vaginal delivery: I anticipate routine care. We will monitor her blood counts carefully due to her low hemoglobin. (2) 37 weeks gestation of : (3) Anemia affecting : PDMP PDMP Reviewed: Not Reviewed Coding Level of Care Code Acute Code for Chg Fwd Diagnoses Spontaneous vaginal delivery O80 37 weeks gestation of Z3A.37 Anemia affecting O99.019
[2024-07-31] MEDS: acetaminophen 325 mg Tablet 650 MG PO ×2 (11:41→20:26)
[2024-07-31] MEDS: benzocaine-menthol 78 gm Canister 1 SPRAY TOPICAL (12:11)
[2024-07-31 14:00] LABS: Hematocrit 25.3 % (36-47); Mean Corpuscular HGB Conc 29.6 g/dL (30-55); Mean Corpuscular Hemoglobin 20.8 pg (27-33); Mean Corpuscular Volume 70.1 fl (85-98); Mean Platelet Volume 10.1 fL (7.4-10.4); Platelet Count 202 10^3/cmm (157-399); Red Blood Count 3.61 10^6/uL (3.85-5.65); White Blood Count 17.47 10^3/uL (3.29-11.43)
[2024-07-31] MEDS: ibuprofen 800 mg tablet PO ×2 (14:59→20:17)
[2024-07-31] MEDS: docusate sodium 100 mg Capsule PO (20:17)
[2024-08-01] MEDS: acetaminophen 325 mg Tablet 650 MG PO (03:39)
[2024-08-01 03:45] VITALS: BP 93/55; PULSE 67; RESP 16; TEMP 36.4; O2SAT 98
[2024-08-01 06:38] LABS: Hematocrit 22.5 % (36-47); Mean Corpuscular HGB Conc 28.4 g/dL (30-55); Mean Corpuscular Hemoglobin 20.4 pg (27-33); Mean Corpuscular Volume 71.7 fl (85-98); Mean Platelet Volume 11.1 fL (7.4-10.4); Platelet Count 189 10^3/cmm (157-399); Red Blood Count 3.14 10^6/uL (3.85-5.65); Red Cell Distribution Width 17.2 % (12.1-15.1); White Blood Count 9.19 10^3/uL (3.29-11.43)
--- NOTE | 2024-08-01 07:53 | P.DS_ITS ---
Discharge Providers ASSISTANT PROFESSOR OF ANTHROPOLOGY Date of Admission: 07/31/24 04:17 Date of Discharge: 08/01/24 Attending Provider at Admission: Sumanth Gutierrez MD Attending Provider at Discharge: Sumanth Gutierrez MD Primary Care Provider: CLIF Wilder Diagnoses at Discharge Discharge Diagnosis (1) 37 weeks gestation of : Status: Acute Reason for Visit Reason for Visit: Ctx, pressure, back pain Hospital Course Hospital Course The patient presented to the hospital in active labor. She was noted to have significant anemia. As result she was unable to have a epidural. An amniotomy was performed. She progressed to complete without difficulty. The vaginal del angela was unremarkable. Her course was also unremarkable. Her bleeding was minimal. Her pain was well-controlled. Her hemoglobin dropped to 6.4. Her vitals remained stable Information Peripartum Data: Infant Delivery Method: Vaginal Physical Exam Narrative: The patient is alert. She appears comfortable. Her heart has a regular rate and rhythm with no murmurs appreciated. Lungs are clear to auscultation bilaterally. Her fundus is firm and below the umbilicus. History History Past Pregnancies Del. Date GA/Weeks Outcome Route Wt Inf Gender Labor Lgth Comp. Anesth esia Location 04/24/23 37 live - full term Vaginal 6 lb 9 oz Male 22 hr [facility] Discharge Data Studies Completed and Pending Pending at discharge Category Date Time Status Antibody Identification Routine Lab 07/30/24 22:00 Results Complete Crossmatch Routine Lab 07/30/24 22:00 Results Leukocyte Reduced RBC Routine Lab 07/30/24 22:00 Results Rho D Immune Globulin Routine Lab 07/30/24 22:00 Results Type and Screen Routine Lab 07/30/24 22:00 Results Laboratory Results WBC 9.19 10^3/uL (3.29-11.43) 08/01/24 06:15 RBC 3.14 10^6/uL (3.85-5.65) L 08/01/24 06:15 Hgb 6.40 g/dL (11.27-16.99) L* 08/01/24 06:15 Hct 22.5 % (36-47) L 08/01/24 06:15 MCV 71.7 fl (85-98) L 08/01/24 06:15 MCH 20.4 pg (27-33) L 08/01/24 06:15 MCHC 28.4 g/dL (30-55) L 08/01/24 06:15 RDW 17.2 % (12.1-15.1) H 08/01/24 06:15 Plt Count 189 10^3/cmm (157-399) 08/01/24 06:15 MPV 11.1 fL (7.4-10.4) H 08/01/24 06:15 Neut % (Auto) 76.8 % 07/31/24 08:45 Lymph % (Auto) 15.2 % 07/31/24 08:45 [place] % (Auto) 6.2 % 07/31/24 08:45 Eos % (Auto) 0.4 % 07/31/24 08:45 Baso % (Auto) 0.7 % 07/31/24 08:45 Neut # (Auto) 7.68 10^3/uL (1.8-7.7) 07/31/24 08:45 Lymph # (Auto) 1.5 10^3/uL (0.8-4.8) 07/31/24 08:45 [place] # (Auto) 0.6 10^3/uL (0.2-0.9) 07/31/24 08:45 Eos # (Auto) 0.0 10^3/uL (0.0-0.8) 07/31/24 08:45 Baso # (Auto) 0.1 10^3/uL (0.0-0.1) 07/31/24 08:45 Nucleated RBC % (auto) 0.2 % 07/31/24 08:45 Nucleated RBCs # 0.0 /100WBC 07/31/24 08:45 Blood Type O Negative 07/30/24 22:00 Rho(D) Type Rh negative 07/30/24 22:00 Antibody Screen Positive 07/30/24 22:00 Antibody Identification Anti-D 07/30/24 22:00 Screen Negative (Negative) 07/31/24 13:55 Crossmatch See Detail 07/30/24 22:00 Vitals Last Vital Signs Temp 97.6 F 08/01/24 03:45 Pulse 67 08/01/24 03:45 Resp 16 08/01/24 03:45 BP 93/55 08/01/24 03:45 Pulse Ox 98 08/01/24 03:45 O2 Del Method Room Air 08/01/24 03:45 Results Labs OB ([facility]): Obstetrics US 02/05/24 Blood Type O Negative 07/30/24 Antibody Screen Positive 07/30/24 Hct 22.5 % (36-47) L 08/01/24 Hgb 6.40 g/dL (11.27-16.99) L* 08/01/24 Rho(D) Type Rh negative 07/30/24 Plt Count 189 10^3/cmm (157-399) 08/01/24 Ser , Semi-Qnt 80670.00 mIU/mL 02/05/24 Discharge Plan Discharge Patient Disposition: Home Condition: Stable Prescriptions: New ibuprofen 800 mg Tablet 800 mg PO TID Qty: 45 0RF ferrous sulfate 325 mg (65 mg iron) tablet,delayed release (DR/EC) 325 mg PO DAILY Qty: 90 0RF Rx Instructions: Take 1 hour prior to meal with vitamin C. Continued vitalmin 1 tab PO DAILY Discharge Orders: Discharge Order (Routine); Ordered 08/01/24 Ordered By: Sumanth Gutierrez Referrals: Sumanth Gutierrez MD [Physician] - 4-7 days Discharge Diet: Advance as tolerated Discharge Activity: Limit activity as instructed Patient Instructions: Opioid Safety Discharge Attestations ASSISTANT PROFESSOR OF ANTHROPOLOGY Time Spent in Discharge Care*: less than 30 min Coding Level of Care Code Acute Code for Chg Fwd Diagnoses 37 weeks gestation of Z3A.37
[2024-08-01 11:42] VITALS: BP 115/75; PULSE 79; RESP 16; TEMP 36.4; O2SAT 100
[2024-08-01] MEDS: ibuprofen 800 mg tablet PO (11:44)
[2024-08-01 13:00] VITALS: BP 115/75; PULSE 79; RESP 16; TEMP 36.4; O2SAT 100
== END 2024-08-01 13:23 | disposition home or self-care (01) | DRG 807 ==
LOC: OPOB 04:17 → OBGYN 04:17
PROVIDERS: Student in an Organized Health Care Education/Training Program; Admitting Provider Family Medicine; PCP Nurse Practitioner Family; Visit Provider Family Medicine
DX: O99.824 Streptococcus B carrier state complicating childbirth (principal); Z37.0 Single live birth; O69.81X0 Labor and delivery complicated by cord around neck, without compression, not applicable or unspecified; O77.0 Labor and delivery complicated by meconium in amniotic fluid; Z3A.37 37 weeks gestation of pregnancy
CPT/HCPCS: 36415; 36430; 59025; 59409; 85025; 85027; 85460; 86850; 86870; 86900; 86920; 90384; 96374; 96376; 99211; J0290; J2590; J3010; J7030; J7121